=== PATIENT | female | born 1955 | race Caucasian/White ===

== ENCOUNTER 2022-11-09 08:22 | Outpatient (OUT) | payer OTHER, SELFPAY ==
[2022-11-09 14:05] LABS: Chol HDL Ratio 2.6; Cholesterol 146 mg/dL (<=200); Glucose 129 mg/dL (74-106); HDL Cholesterol 56 mg/dL (40-60); LDL Cholesterol Calculated 70.8 mg/dL; Triglycerides 96 mg/dL (<=150); VLDL CHOLESTEROL 19.2 mg/dL
== END 2022-11-09 08:23 | disposition home or self-care (01) ==
LOC: LAB 08:25
PROVIDERS: PCP Family Medicine; Visit Provider Psychiatry & Neurology Psychiatry
DX: F20.9 Schizophrenia, unspecified (principal); Z79.899 Other long term (current) drug therapy
CPT/HCPCS: 36415; 80061; 82947

== ENCOUNTER 2023-01-03 08:55 | Emergency (ER) | payer OTHER, SELFPAY ==
[2023-01-03 09:02] VITALS: BP 141/72; PULSE 97; RESP 18; TEMP 36.7; O2SAT 95; BMI 24.6
--- NOTE | 2023-01-03 09:14 | ED_ITS ---
HPI - Female Genitourinary General Chief complaint: Urogenital-Female Stated complaint: UTI SYMPTOMS Time Seen by Provider: 01/03/23 09:01 Source: patient Mode of arrival: walk-in History of Present Illness HPI Narrative: urine was dark and foul smelling this morning. No abdominal pain or flank pain today and no fever or vomiting. After the urine was negative for infection but positive for elevated glucosuria, I went back and talked with the patient and got more information. Over the last 2 weeks she has been feeling fatigued and intermittently been vomiting with some abdominal pain - the last time was 2 days ago, which is why she responded no when I asked about abdominal pain and vomiting. She takes metformin 1000mg daily. None of her other meds have recently changed. No chest pain or shortness of breath. No skin rash, fall or injury. Related Data Home Medications Medication Instructions Recorded Confirmed alendronate 35 mg tablet 35 mg PO Q24H 01/03/23 01/03/23 aspirin 81 mg tablet,delayed 81 mg PO DAILY 01/03/23 01/03/23 release ([place] Aspirin) atorvastatin 10 mg tablet 10 mg PO Q24H 01/03/23 01/03/23 baclofen 10 mg tablet 10 mg PO Q12H 01/03/23 01/03/23 buspirone 10 mg tablet 10 mg PO Q12H 01/03/23 01/03/23 cyanocobalamin (vitamin B-12) 1,000 mcg PO Q24H 01/03/23 01/03/23 1,000 mcg tablet dapagliflozin propanediol 10 mg 10 mg PO Q24H 01/03/23 01/03/23 tablet (Farxiga) escitalopram oxalate 20 mg tablet 20 mg PO Q24H 01/03/23 01/03/23 lisinopril 2.5 mg tablet 2.5 mg PO Q24H 01/03/23 01/03/23 metformin 1,000 mg tablet 1,000 mg PO Q12H 01/03/23 01/03/23 montelukast 10 mg tablet 10 mg PO Q24H 01/03/23 01/03/23 omeprazole 40 mg capsule,delayed 40 mg PO Q12H 01/03/23 01/03/23 release risperidone 2 mg tablet 2 mg PO Q24H 01/03/23 01/03/23 verapamil 180 mg tablet,extended 180 mg PO Q24H 01/03/23 01/03/23 release zonisamide 100 mg capsule 100 mg PO Q24H 01/03/23 01/03/23 Previous Rx's Medication Instructions Recorded ondansetron 4 mg disintegrating 4 mg PO Q6H PRN nausea and 01/03/23 tablet vomiting #20 tabs Allergies Allergy/AdvReac Type Severity Reaction Status Date / Time codeine AdvReac Severe Verified 01/03/23 09:01 Penicillins AdvReac Severe Verified 01/03/23 09:01 Sulfa (Sulfonamide AdvReac Severe Verified 01/03/23 09:01 Antibiotics) [facility] Medical History (Updated 01/03/23 @ 10:51 by Thanh Bloom) Diabetes ?E11.9 - Type 2 diabetes mellitus without complications (ICD-10) Exam Narrative Exam Narrative: Nurses notes and vital signs reviewed and patient is not hypoxic. afebrile General: Well-appearing and in no apparent distress. Skin: Warm, dry, no pallor noted. No rash. Head: Normocephalic, atraumatic. Neck: Supple, non-tender. no meningismus Eye: Pupils are equal, round and EOMI. No scleral icterus. Ears, Nose, Mouth, and Throat: Oral mucosa is slightly dry Cardiovascular: borderline tachycardia Respiratory: No accessory muscle use or respiratory distress. Lungs are clear to auscultation, no wheezing, rales or rhonchi Back: No CVA tenderness Musculoskeletal: normal ROM, no calf or popliteal tenderness, no lower extremity edema/swelling GI: Abdomen is soft, non-distended. Normal bowel sounds. No tenderness to palpation. No rebound, guarding, or rigidity noted. Neurological: A&O x4. No cranial nerve dysfunction observed. No truncal ataxia. Moves all extremities. Sensation intact. Psychiatric: Cooperative and interactive. Normal mood and affect. Constitutional Vital Signs, click to edit/add: Last Vital Signs Temp 98.0 F 01/03/23 09:02 Pulse 89 01/03/23 09:58 Resp 18 01/03/23 09:58 BP 122/71 01/03/23 09:58 Pulse Ox 96 01/03/23 09:58 O2 Del Method Room Air 01/03/23 09:02 Course Vital Signs Vital signs: Vital Signs Temperature 98.0 F 01/03/23 09:02 Pulse Rate 97 H 01/03/23 09:02 Respiratory Rate 18 01/03/23 09:02 Blood Pressure 141/72 01/03/23 09:02 Pulse Oximetry 95 01/03/23 09:02 Oxygen Delivery Method Room Air 01/03/23 09:02 Temperature 98.0 F 01/03/23 09:02 Pulse Rate 89 01/03/23 09:58 Respiratory Rate 18 01/03/23 09:58 Blood Pressure 122/71 01/03/23 09:58 Pulse Oximetry 96 01/03/23 09:58 Oxygen Delivery Method Room Air 01/03/23 09:02 MDM - Female Genitourinary MDM Narrative Medical decision making narrative: urine sample obtained and sent for testing. Urine negative for infection but >1000 glucose noted. Blood drawn and sent for testing. CBC unremarkable. CMP notable for glucose >200. I confirmed with [facility] that the patient is taking Metformin 1000mg PO BID, which is max daily dose. I called Dr Sandoval's office but he is not in until after 1pm - I left a message asking him to call me back to discuss addition of another med for treatment of the patient's hyperglycemia. I spoke with Dr Sandoval at 1105am - he confirmed that she should also be taking dapagliflozin 10mg daily, which we confirmed with the [facility], and he will increase her Trulicity from 3mg weekly to 4.5mg weekly. He said he would have the office call her, explain the plan and set up a follow up appointment. I prescribed odt zofran for the patient to take in case she again develops nausea/vomiting. Lab Data Labs: Lab Results 01/03/23 01/03/23 Range/Units 09:08 09:50 WBC 6.2 (4.0-11.0) 10^3/uL RBC 4.70 (4.20-5.40) 10^6/uL Hgb 13.4 (12.0-16.0) g/dL Hct 41.7 (36.0-48.0) % MCV 88.7 (81.0-99.0) fL MCH 28.5 (26.7-34.0) pg MCHC 32.1 (29.9-35.2) g/dL RDW 13.8 (11.0-15.0) % Plt Count 310 (150-450) 10^3/uL MPV 10.0 (9.5-13.5) fL Neut % (Auto) 73.4 (43.0-75.0) % Lymph % (Auto) 19.1 L (20.5-60.0) % Long % (Auto) 5.5 (1.7-12.0) % Eos % (Auto) 1.5 (0.9-7.0) % Baso % (Auto) 0.3 (0.2-2.0) % Neut # (Auto) 4.5 (1.4-6.5) 10^3/uL Lymph # (Auto) 1.2 (1.2-3.8) 10^3/uL Long # (Auto) 0.3 (0.3-0.8) 10^3/uL Eos # (Auto) 0.1 (0.0-0.7) 10^3/uL Baso # (Auto) 0.0 (0.0-0.1) 10^3/uL Abs Immat Gran (auto) 0.01 (0.00-0.03) 10^3/uL Imm/Tot Granulo (auto) 0.2 (0.0-0.5) % Sodium 142 (136-145) mmol/L Potassium 4.2 (3.5-5.1) mmol/L Chloride 104 (98-107) mmol/L Carbon Dioxide 25.2 (21.0-32.0) mmol/L Anion Gap 17.0 BUN 13.0 (7.0-18.0) mg/dL Creatinine 0.78 (0.55-1.02) mg/dL Est GFR ( Amer) >60 (>=60) Est GFR (Non-Af Amer) >60 (>=60) BUN/Creatinine Ratio 16.7 Glucose 209 H (74-106) mg/dL Calcium 9.2 (8.5-10.1) mg/dL Total Bilirubin 0.3 (0.2-1.0) mg/dL AST 14 L (15-37) U/L ALT 22 (14-59) U/L Alkaline Phosphatase 84 (46-116) U/L Total Protein 6.6 (6.4-8.2) g/dL Albumin 3.5 (3.4-5.0) g/dL Globulin 3.1 g/dL Albumin/Globulin Ratio 1.1 Urine Color Yellow (YELLOW) Urine Clarity Clear (CLEAR) Urine pH 6.0 (5.0-9.0) Ur Specific [place] <=1.005 A (1.005-1.025) Urine Protein Negative (NEG/TRACE) mg/dL Urine Glucose (UA) >=1000 A (NEGATIVE) mg/dL Urine Ketones Negative (NEGATIVE) mg/dL Urine Occult Blood Negative (NEGATIVE) Urine Nitrite Negative (NEGATIVE) Urine Bilirubin Negative (NEGATIVE) Urine Urobilinogen 0.2 (0.2-1.0) EU/dL Ur Leukocyte Esterase Negative (NEGATIVE) Discharge Plan Discharge Chief Complaint: Urogenital-Female Clinical Impression: Hyperglycemia due to diabetes mellitus, Glucosuria Patient Disposition: Home, Self-Care Time of Disposition Decision: 10:50 Prescriptions / Home Meds: New ondansetron 4 mg tablet,disintegrating 4 mg PO Q6H PRN (Reason: nausea and vomiting) Qty: 20 0RF No Action alendronate 35 mg tablet 35 mg PO Q24H atorvastatin 10 mg tablet 10 mg PO Q24H baclofen 10 mg tablet 10 mg PO Q12H buspirone 10 mg tablet 10 mg PO Q12H cyanocobalamin (vitamin B-12) 1,000 mcg tablet 1,000 mcg PO Q24H Farxiga 10 mg tablet 10 mg PO Q24H escitalopram oxalate 20 mg tablet 20 mg PO Q24H lisinopril 2.5 mg tablet 2.5 mg PO Q24H metformin 1,000 mg tablet 1,000 mg PO Q12H montelukast 10 mg tablet 10 mg PO Q24H omeprazole 40 mg capsule,delayed release(DR/EC) 40 mg PO Q12H risperidone 2 mg tablet 2 mg PO Q24H verapamil 180 mg tablet extended release 180 mg PO Q24H zonisamide 100 mg capsule 100 mg PO Q24H aspirin [[place] Aspirin] 81 mg tablet,delayed release (DR/EC) 81 mg PO DAILY Instructions: Diabetic Hyperglycemia (ED), Type 2 Diabetes in the Older Adult (ED), Diabetes and Nutrition (ED) Stand Alone Forms: Portal Instructions Referrals: FARIDA SANDOVAL [Primary Care Provider] - 1 week Discharge Date/Time: 01/03/23 11:01
[2023-01-03 09:23] LABS: Bilirubin Urine NEGATIVE (NEGATIVE); Blood Urine NEGATIVE (NEGATIVE); Clarity Urine CLEAR (CLEAR); Color Urine YELLOW (YELLOW); Glucose Urine UA >=1000 mg/dL (NEGATIVE); Ketones Urine NEGATIVE (NEGATIVE); Leukocyte Esterase Urine NEGATIVE (NEGATIVE); Nitrite Urine NEGATIVE (NEGATIVE); Protein Urine NEGATIVE (NEG/TRACE); Specific Gravity Urine <=1.005 (1.005-1.025); Urobilinogen Urine 0.2 EU/dL (0.2-1.0)
[2023-01-03 09:24] LABS: Urine Microscopic Indicated NO
[2023-01-03 09:58] VITALS: BP 122/71; PULSE 89; RESP 18; O2SAT 96
[2023-01-03 10:04] LABS: Basophils Percent Auto 0.3 % (0.2-2.0); Eosinophils Absolute Auto 0.1 10^3/uL (0.0-0.7); Eosinophils Percent Auto 1.5 % (0.9-7.0); Hematocrit 41.7 % (36.0-48.0); Hemoglobin 13.4 g/dL (12.0-16.0); Immature Granulocytes Abs Auto 0.01 10^3/uL (0.00-0.03); Immature Granulocytes Pct Auto 0.2 % (0.0-0.5); Lymphocytes Absolute Auto 1.2 10^3/uL (1.2-3.8); Lymphocytes Percent Auto 19.1 % (20.5-60.0); Mean Corpuscular HGB Conc 32.1 g/dL (29.9-35.2); Mean Corpuscular Hemoglobin 28.5 pg (26.7-34.0); Mean Corpuscular Volume 88.7 fL (81.0-99.0); Monocytes Absolute Auto 0.3 10^3/uL (0.3-0.8); Monocytes Percent Auto 5.5 % (1.7-12.0); Neutrophils Absolute Auto 4.5 10^3/uL (1.4-6.5); Neutrophils Percent Auto 73.4 % (43.0-75.0); Platelet Count 310 10^3/uL (150-450); Red Cell Distribution Width 13.8 % (11.0-15.0); White Blood Count 6.2 10^3/uL (4.0-11.0)
[2023-01-03 10:14] LABS: Alanine Aminotransferase 22 U/L (14-59); Albumin Globulin Ratio 1.1; Albumin Level 3.5 g/dL (3.4-5.0); Alkaline Phosphatase 84 U/L (46-116); Aspartate Amino Transferase 14 U/L (15-37); BUN Creatinine Ratio 16.7; Bilirubin Total 0.3 mg/dL (0.2-1.0); Calcium 9.2 mg/dL (8.5-10.1); Carbon Dioxide 25.2 mmol/L (21.0-32.0); Chloride 104 mmol/L (98-107); Estimated GFR (African America >60 (>=60); Estimated GFR (Non-African Ame >60 (>=60); Globulin 3.1 g/dL; Glucose 209 mg/dL (74-106); Potassium 4.2 mmol/L (3.5-5.1); Sodium 142 mmol/L (136-145); Total Protein 6.6 g/dL (6.4-8.2)
== END 2023-01-03 11:01 | disposition home or self-care (01) ==
PROVIDERS: Emergency Provider Emergency Medicine; PCP Family Medicine
DX: E11.65 Type 2 diabetes mellitus with hyperglycemia (principal); R81 Glycosuria; Z79.899 Other long term (current) drug therapy; Z79.82 Long term (current) use of aspirin; Z79.84 Long term (current) use of oral hypoglycemic drugs
CPT/HCPCS: 36415; 80053; 81003; 85025; 99283